=== PATIENT | female | born 1930 | race Caucasian/White ===

== ENCOUNTER 2016-07-30 15:29 | Emergency (ER) | payer OTHER ==
[~2016-07-30] VITALS: Ht 149.9 cm; Wt 51.9 kg
[2016-07-30] MEDS ORDERED: SODIUM CHLORIDE FLUSH 10ML SYR IVF ONE (16:30)
[2016-07-30] MEDS ORDERED: ASPIRIN 81 MG TABLET CHEW PO ONE (16:30)
[2016-07-30 16:47] LABS: BLOOD UREA NITROGEN 17 mg/dL (7-18)
[2016-07-30] MEDS ORDERED: ASPIRIN 81 MG TABLET CHEW ONE (16:52)
[2016-07-30 16:54] LABS: IS PT STATUS REG ER OR PRE ER? YES
[2016-07-30] MEDS ORDERED: BUSP10TA PO (17:11)
[2016-07-30] MEDS ORDERED: VALS80TA3 PO (17:11)
[2016-07-30 18:21] VITALS: BP 159/68
== END 2016-07-30 18:25 | disposition home or self-care (01) ==
LOC: ED 18:19
DX: F41.1 Generalized anxiety disorder (principal); I10 Essential (primary) hypertension
CPT/HCPCS: 36415; 71010; 80048; 82040; 83880; 84484; 85025; 93005; 99285